=== PATIENT | female | born 1960 | race Caucasian/White ===

== ENCOUNTER → 2016-11-12 | Outpatient (CLI) | payer BC ==
--- NOTE | 2016-11-13 10:57 | MM ---
Reason for exam: screening (asymptomatic). Last mammogram was performed 1 year and 5 months ago. History: Patient is postmenopausal. Family history of breast cancer in mother at age 70, breast cancer in maternal aunt, and breast cancer in maternal grandmother. Took hormonal contraceptives for 7 years 2 months beginning at age 40. Physical Findings: A clinical breast exam by your physician is recommended on an annual basis and results should be correlated with mammographic findings. MG 3D Screening Mammo W/Cad Bilateral CC and MLO view(s) were taken. Prior study comparison: June 14, 2015, right breast MG 3d work up w/cad RT. May 31, 2015, bilateral MG 3d screening mammo w/cad. February 21, 2014, bilateral MG screening mammo w CAD. There are scattered fibroglandular densities. There is no discrete abnormality. ASSESSMENT: Negative, BI-RAD 1 RECOMMENDATION: Routine screening mammogram of both breasts in 1 year.
== END | disposition home or self-care (01) ==
LOC: RADMAMWWP 16:24
PROVIDERS: ATTEND Family Medicine
DX: Z12.31 Encounter for screening mammogram for malignant neoplasm of breast (principal)
CPT/HCPCS: 77063; G0202

== ENCOUNTER 2017-07-28 17:24 | Emergency (ER) | payer BC ==
[2017-07-28 17:35] VITALS: RESP 18
[2017-07-28] MEDS ORDERED: ASPIRIN 81 MG PO STA (17:45)
[2017-07-28] MEDS ORDERED: NITROGLYCERIN OINT 1 INCH/GM PACKET TOPICAL STA (17:45)
--- NOTE | 2017-07-28 18:02 | ED ---
Chest Pain HPI - General Chief Complaint: Chest Pain Stated Complaint: CHEST PAIN, RADIATING, TINGLING HANDS AND FEET Time Seen by Provider: 07/28/17 17:41 Source: patient Mode of arrival: wheelchair Limitations: no limitations - History of Present Illness Initial Comments: This 56-year-old white female presents with a complaint of some chest pain. She states that this is in the midsternal region and seems to radiate posteriorly. It is described as a pressure type of sensation. It occurred earlier today after she was shoveling snow. She denies any shortness of breath. She states that she had some slight paresthesias to her hands and feet. She denies any previously known cardiac disease. She has never had a stress test or heart catheterization. She denies any leg pain or swelling or history of DVT or PE. She is feeling improved currently. - Related Data Home Medications Medication Instructions Recorded Confirmed Albuterol Inhaler [Ventolin Hfa 1 - 2 puff INHALATION RT-Q6H PRN 07/28/17 Inhaler] Albuterol Nebulized [Ventolin 2.5 mg INHALATION RT-Q6H PRN 07/28/17 07/28/17 Nebulized] Ascorbic Acid [Vitamin C] 500 mg PO DAILY 07/28/17 07/28/17 Inulin/Chromium Picolinate [Fiber 1 tab PO DAILY 07/28/17 07/28/17 Gummies Chew] Levothyroxine Sodium [Synthroid] 25 mcg PO DAILY 07/28/17 07/28/17 Multivitamins, Thera [Multivitamin 1 tab PO DAILY 07/28/17 07/28/17 (formulary)] Ranitidine HCl [Zantac] 150 mg PO HS 07/28/17 07/28/17 Allergies Allergy/AdvReac Type Severity Reaction Status Date / Time cephalexin [From Keflex] Allergy Unknown Verified 07/28/17 18:54 loperamide [From Imodium A-D] Allergy Unknown Verified 07/28/17 18:54 midazolam [From Versed] Allergy Unknown Verified 07/28/17 18:54 Penicillins Allergy Unknown Verified 07/28/17 18:54 terbinafine [From Lamisil] Allergy Unknown Verified 07/28/17 18:54 Review of Systems ROS Statement: Those systems with pertinent positive or pertinent negative responses have been documented in the HPI. ROS Other: All systems not noted in ROS Statement are negative. Past Medical History Past Medical History: GERD/Reflux, Thyroid Disorder History of Any Multi-Drug Resistant Organisms: None Reported Past Surgical History: Section, Tonsillectomy Past Psychological History: Depression Smoking Status: Never smoker Past Alcohol Use History: None Reported Past Drug Use History: None Reported General Exam - General Exam Comments Initial Comments: GENERAL: The patient is well nourished and well hydrated. VITAL SIGNS: Heart rate, blood pressure, respiratory rate reviewed as recorded in nurse's notes. EYES: Pupils are round and reactive. Extraocular movements are intact. No conjunctival / lid redness or swelling. ENT: No external evidence of injury, swelling, or ecchymosis. Airway is patent. Throat is clear. NECK: Nontender. No swelling or evidence of injury. No subcutaneous emphysema. Trachea is midline. No thyroid mass. HEART: Regular rate and rhythm. Good peripheral pulses. LUNGS/CHEST: Breath sounds clear and equal bilaterally. No rales, rhonchi, or wheezes. No ecchymosis, subcutaneous emphysema, or tenderness. ABDOMEN: Abdomen soft without tenderness. No palpable masses or organomegaly. No peritoneal signs. No abdominal wall swelling or ecchymosis. EXTREMITIES: No extremity tenderness. Normal muscle tone and function. No thoracolumbar tenderness. NEUROLOGIC: Sensation is grossly intact. Cranial nerve exam reveals face is symmetrical, tongue is midline, speech is clear. SKIN: No abrasions or ecchymosis is noted. No induration or masses noted. PSYCHIATRIC: Alert and oriented. Appropriate behavior and judgment. Limitations: no limitations Course Vital Signs 07/28/17 07/28/17 17:31 19:17 Temperature 97.2 F L 97.6 F Pulse Rate 68 67 Respiratory 18 18 Rate Blood Pressure 132/63 135/89 O2 Sat by Pulse 100 98 Oximetry Chest Pain MDM - MDM The patient was seen and examined. All diagnostics were reviewed. The EKG shows a normal sinus rhythm at a rate of 65. There is no acute ST-T wave changes identified. The OK interval is 176, QRS duration is 80, and the QTc interval is 438. An IV is established and she does receive some aspirin as well as Nitropaste. The chest x-ray does not show any acute processes. The laboratory is all essentially within normal limits. The patient is in no distress upon initial evaluation and recheck. It is felt as though she benefit from admission to the hospital to rule out the possibility of acute coronary syndrome. She refuses to be admitted. She states that she feels much improved. Risks and benefits were discussed in detail. She still refuses admission. She is quite lucid and decision making capability is intact. She leaves AGAINST MEDICAL ADVICE. She was instructed to take an aspirin daily and to follow-up with her doctor tomorrow to set up a stress test on an outpatient basis and return at any time if she changes her mind regarding admission. Disposition Clinical Impression: Chest pain, Unstable angina pectoris Disposition: Left Against Medical Advice Condition: Good Instructions: Chest Pain (ED), Against Medical Advice (ED) Additional Instructions: Please take an aspirin daily. Please arrange a stress test with your primary care physician as soon as possible. Please return if her symptoms do worsen or recur. Referrals: Micheal Yañez III, MD [Primary Care Provider] - 1-2 days Time of Disposition: 19:41
[2017-07-28 18:22] LABS: Basophils # (A) 0.1 k/uL (0-0.2); Basophils % (A) 1 %; Eosinophils # (A) 0.2 k/uL (0-0.7); Eosinophils % (A) 2 %; HCT 41.5 % (34.0-46.0); HGB 13.7 gm/dL (11.4-16.0); Lymphocytes # (A) 2.5 k/uL (1.0-4.8); Lymphocytes % (A) 30 %; MCH 28.6 pg (25.0-35.0); MCV 86.7 fL (80.0-100.0); Mean Platelet Volume 7.1; Monocytes # (A) 0.3 k/uL (0-1.0); Monocytes % (A) 4 %; Neutrophils # (A) 5.1 k/uL (1.3-7.7); Neutrophils % (A) 61 %; Platelet Count 257 k/uL (150-450); RBC 4.79 m/uL (3.80-5.40); RDW 13.9 % (11.5-15.5); WBC 8.4 k/uL (3.8-10.6)
[2017-07-28 18:30] LABS: ALT 35 U/L (9-52); AST 30 U/L (14-36); Albumin 4.5 g/dL (3.5-5.0); Alkaline Phosphatase 54 U/L (38-126); Anion Gap 12 mmol/L; Blood Urea Nitrogen 23 mg/dL (7-17); Calcium 10.4 mg/dL (8.4-10.2); Carbon Dioxide 29 mmol/L (22-30); Chloride 102 mmol/L (98-107); Glucose 90 mg/dL (74-99); Magnesium 2.3 mg/dL (1.6-2.3); Potassium 4.3 mmol/L (3.5-5.1); Sodium 143 mmol/L (137-145); Total Bilirubin 0.4 mg/dL (0.2-1.3); Total Protein 7.3 g/dL (6.3-8.2)
--- NOTE | 2017-07-28 18:48 | XR ---
EXAMINATION TYPE: XR chest 2V DATE OF EXAM: 07/28/2017 COMPARISON: NONE HISTORY: Chest pain TECHNIQUE: Frontal and lateral views of the chest are obtained. FINDINGS: Heart and mediastinum are normal. Lungs are clear. Diaphragm is normal. There are chest le ads. Bony thorax appears intact. IMPRESSION: Normal chest
[2017-07-28 18:49] LABS: Creatine Kinase 120 U/L (30-135)
[2017-07-28 19:02] LABS: Creatine Kinase MB 0.9 ng/mL (0.0-2.4); Troponin I <0.012 ng/mL (0.000-0.034)
[2017-07-28 19:16] LABS: INR 1.2 (<1.2); Partial Thromboplastin Time 24.5 sec (22.0-30.0); Prothrombin Time 11.8 sec (9.0-12.0)
[2017-07-28 19:18] VITALS: BP 135/89; PULSE 67; TEMP 97.6
== END 2017-07-28 20:07 | disposition left against medical advice (07) ==
LOC: EC 17:24
DX: I20.0 Unstable angina (principal); E07.9 Disorder of thyroid, unspecified; K21.9 Gastro-esophageal reflux disease without esophagitis; Z53.29 Procedure and treatment not carried out because of patient's decision for other reasons; Z88.0 Allergy status to penicillin; Z88.1 Allergy status to other antibiotic agents; Z88.8 Allergy status to other drugs, medicaments and biological substances; Z79.899 Other long term (current) drug therapy
CPT/HCPCS: 36415; 71046; 80053; 82550; 82553; 83735; 83880; 84484; 85025; 85610; 85730; 93005; 99285

== ENCOUNTER → 2017-08-05 | Outpatient (CLI) | payer BC ==
--- NOTE | 2017-08-06 11:46 | EST ---
EXERCISE STRESS AGE: 56 SEX: F HT: 5'10" WT: 260 PROTOCOL: Will Stress Test STAGE: III DURATION OF EXERCISE: 9:12 HEART RATE REST: 76 BLOOD PRESSURE REST: 119/74 MAXIMUM HEART RATE ACHIEVED: 162 MAXIMUM BLOOD PRESSURE: 192/76 85% MPHR: 140 100% MPHR: 165 METS: 10.7 INDICATIONS: Chest pain. CLINICAL INFORMATION: Patient was exercised for a total period of 9 minutes, the peak heart rate of 162 was achieved. Maximum blood pressure of 192/76 mmHg was noted. Resting EKG shows normal sinus rhythm with normal NE interval and QRS duration and normal ST-T waves. During exercise J-point depression with upsloping ST segments are noted. Patient did not complain of any chest pain during the test. FINAL IMPRESSION: 1. This stress test is not suggestive of ischemia. 2. Patient's exercise tolerance is normal. 3. Patient did not complain of any anginal pain during the test. MMODL / IJN: [id number] /
== END | disposition home or self-care (01) ==
LOC: RADNMMAIN 10:46
PROVIDERS: ATTEND Nurse Practitioner Family
DX: R07.9 Chest pain, unspecified (principal)
CPT/HCPCS: 93017

== ENCOUNTER → 2018-01-23 | Outpatient (CLI) | payer BC ==
--- NOTE | 2018-01-24 10:50 | MM ---
Reason for exam: clinical finding. Last mammogram was performed 1 year and 2 months ago. History: Patient is postmenopausal. Family history of breast cancer in mother at age 70, breast cancer in maternal aunt at age 60, and breast cancer in maternal grandmother at age 80. Took hormonal contraceptives for 7 years 2 months beginning at age 40. Physical Findings: Nurse did not find any significant physical abnormalities on exam. MG 3D Diag Mammo W/Cad BAR[facility] Bilateral CC and MLO view(s) were taken. Prior study comparison: November 12, 2016, bilateral MG 3d screening mammo w/cad. June 14, 2015, right breast MG 3d work up w/cad RT. May 31, 2015, bilateral MG 3d screening mammo w/cad. The breast tissue is heterogeneously dense. This may lower the sensitivity of mammography. No suspicious abnormality. No significant new finding since priors. These results were verbally communicated with the patient and result sheet given to the patient on 01/23/18. ASSESSMENT: Negative, BI-RAD 1 RECOMMENDATION: Routine screening mammogram of both breasts in 1 year.
== END | disposition home or self-care (01) ==
LOC: RADMAMWWP 10:24
PROVIDERS: ATTEND Family Medicine
DX: N64.4 Mastodynia (principal); N63.0 Unspecified lump in unspecified breast
CPT/HCPCS: 77062; 77066

== ENCOUNTER → 2019-03-23 | Outpatient (CLI) | payer BC ==
--- NOTE | 2019-03-26 08:13 | MM ---
Reason for exam: screening (asymptomatic). Last mammogram was performed 1 year and 2 months ago. History: Patient is postmenopausal. Family history of breast cancer in mother at age 70, breast cancer in maternal aunt at age 60, and breast cancer in maternal grandmother at age 80. Took hormonal contraceptives for 7 years 2 months beginning at age 40. Physical Findings: A clinical breast exam by your physician is recommended on an annual basis and results should be correlated with mammographic findings. MG 3D Screening Mammo W/Cad Bilateral CC and MLO view(s) were taken. Prior study comparison: January 23, 2018, bilateral MG 3d diag mammo w/cad [facility]. November 12, 2016, bilateral MG 3d screening mammo w/cad. There are scattered fibroglandular densities. No significant changes when compared with prior studies. ASSESSMENT: Benign, BI-RAD 2 RECOMMENDATION: Routine screening mammogram of both breasts in 1 year.
== END | disposition home or self-care (01) ==
LOC: RADMAMWWP 13:23
PROVIDERS: ATTEND Family Medicine
DX: Z12.31 Encounter for screening mammogram for malignant neoplasm of breast (principal); Z78.0 Asymptomatic menopausal state; Z80.3 Family history of malignant neoplasm of breast
CPT/HCPCS: 77063; 77067

== ENCOUNTER → 2020-03-29 | Outpatient (CLI) | payer BC ==
--- NOTE | 2020-03-31 12:04 | MM ---
Reason for exam: screening (asymptomatic). Last mammogram was performed 1 year ago. History: Patient is postmenopausal. Family history of breast cancer in mother at age 70, breast cancer in maternal aunt at age 60, and breast cancer in maternal grandmother at age 80. Took hormonal contraceptives for 7 years 2 months beginning at age 40. Physical Findings: A clinical breast exam by your physician is recommended on an annual basis and results should be correlated with mammographic findings. MG 3D Screening Mammo W/Cad Bilateral CC and MLO view(s) were taken. Prior study comparison: March 23, 2019, bilateral MG 3d screening mammo w/cad. January 23, 2018, bilateral MG 3d diag mammo w/cad [facility]. There are scattered fibroglandular densities. No significant changes when compared with prior studies. ASSESSMENT: Negative, BI-RAD 1 RECOMMENDATION: Routine screening mammogram of both breasts in 1 year.
== END | disposition home or self-care (01) ==
LOC: RADMAMWWP 13:23
PROVIDERS: ATTEND Family Medicine
DX: Z12.31 Encounter for screening mammogram for malignant neoplasm of breast (principal)
CPT/HCPCS: 77063; 77067

== ENCOUNTER → 2020-11-17 | Outpatient (CLI) | payer BC ==
--- NOTE | 2020-11-17 12:22 | XR ---
EXAMINATION TYPE: XR foot complete LT DATE OF EXAM: 11/17/2020 CLINICAL HISTORY: Injury yesterday with pain. TECHNIQUE: Frontal, lateral, and oblique images of the left foot are obtained. COMPARISON: None FINDINGS: There is no acute fracture/dislocation evident in the left foot. The joint spaces in the left foot appear within normal limits. Mild diffuse subcutaneous edema. IMPRESSION: There is no acute fracture or dislocation in the left foot.
== END | disposition home or self-care (01) ==
LOC: RADXRMAIN 11:50
PROVIDERS: ATTEND Family Medicine
DX: S99.922A Unspecified injury of left foot, initial encounter (principal)

== ENCOUNTER → 2021-05-17 | Outpatient (CLI) | payer BC ==
--- NOTE | 2021-05-18 12:00 | MM ---
Reason for exam: screening (asymptomatic). Last mammogram was performed 1 year and 2 months ago. History: Patient is postmenopausal. Family history of breast cancer in mother at age 70, breast cancer in maternal aunt at age 60, and breast cancer in maternal grandmother at age 80. Took hormonal contraceptives for 7 years 2 months beginning at age 40. Physical Findings: A clinical breast exam by your physician is recommended on an annual basis and results should be correlated with mammographic findings. MG 3D Screening Mammo W/Cad Bilateral CC and MLO view(s) were taken. Prior study comparison: March 29, 2020, bilateral MG 3d screening mammo w/cad. March 23, 2019, bilateral MG 3d screening mammo w/cad. The breast tissue is heterogeneously dense. This may lower the sensitivity of mammography. There are benign appearing round calcifications bilaterally. There is no discrete abnormality. ASSESSMENT: Benign, BI-RAD 2 RECOMMENDATION: Routine screening mammogram of both breasts in 1 year.
== END | disposition home or self-care (01) ==
LOC: RADMAMWWP 07:28
PROVIDERS: ATTEND Family Medicine
DX: Z12.31 Encounter for screening mammogram for malignant neoplasm of breast (principal); Z78.0 Asymptomatic menopausal state; Z80.3 Family history of malignant neoplasm of breast
CPT/HCPCS: 77063; 77067

== ENCOUNTER → 2022-06-14 | Outpatient (CLI) | payer BC ==
--- NOTE | 2022-06-17 10:35 | MM ---
Reason for Exam: Screening (asymptomatic). Last screening mammogram was performed 12 month(s) ago. Patient History: Menarche at age 15. First Full-Term at age 28. Postmenopausal. Patient has history of breast feeding. Hormonal Contraceptives for 7 years, 2 months, from age 40 until age 49. Maternal grandmother had breast cancer, age 80. Maternal aunt had breast cancer, age 60. Mother had breast cancer, age 70. Risk Values: Mikaela 5 year model risk: 2.6%. NCI Lifetime model risk: 12.8%. Prior Study Comparison: 03/23/2019 Bilateral Screening Mammogram, [facility]. 03/29/2020 Bilateral Screening Mammogram, [facility]. 05/17/2021 Bilateral Screening Mammogram, [facility]. Tissue Density: There are scattered fibroglandular densities. Findings: Analyzed By CAD. There is oval 1.1 cm focal asymmetry in the right breast middle depth medial aspect CC slice 13 of uncertain etiology as corresponding abnormality not clearly seen on MLO view. There is no suspicious group of microcalcifications or new suspicious mass in either breast. Overall Assessment: Incomplete: need additional imaging evaluation, BI-RAD 0 Management: Special View Mammogram of the right breast. Return for additional diagnostic imaging right breast. Electronically signed and approved by: Jj Meredith M.D.
== END | disposition home or self-care (01) ==
LOC: RADMAMWWP 07:25
PROVIDERS: ATTEND Family Medicine
DX: Z12.31 Encounter for screening mammogram for malignant neoplasm of breast (principal); Z78.0 Asymptomatic menopausal state; Z80.3 Family history of malignant neoplasm of breast
CPT/HCPCS: 77063; 77067

== ENCOUNTER → 2022-06-19 | Outpatient (CLI) | payer BC ==
--- NOTE | 2022-06-19 09:11 | MM ---
Reason for Exam: Additional evaluation requested from abnormal screening. Last screening mammogram was performed less than 1 month ago. Patient History: Menarche at age 15. First Full-Term at age 28. Postmenopausal. Patient has history of breast feeding. Hormonal Contraceptives for 7 years, 2 months, from age 40 until age 49. Maternal grandmother had breast cancer, age 80. Maternal aunt had breast cancer, age 60. Mother had breast cancer, age 70. Risk Values: Mikaela 5 year model risk: 2.6%. NCI Lifetime model risk: 12.8%. Prior Study Comparison: 11/12/2016 Bilateral Screening Mammogram, [facility]. 01/23/2018 Bilateral Diagnostic Mammogram, [facility]. 03/23/2019 Bilateral Screening Mammogram, [facility]. 03/29/2020 Bilateral Screening Mammogram, [facility]. 05/17/2021 Bilateral Screening Mammogram, [facility]. 06/14/2022 Bilateral MG 3D screening mammo w/cad, [facility]. Tissue Density: Right: The breast tissue is heterogeneously dense. This may lower the sensitivity of mammography. Findings: Analyzed By CAD. Impression no persistent suspicious density is evident. No spiculated or lobular masses are evident. No architectural distortion. Short-term follow-up is recommended. Overall Assessment: Probably benign, BI-RAD 3 Management: Diagnostic Mammogram of the right breast in 6 months. A clinical breast exam by your physician is recommended on an annual basis and results should be correlated with mammographic findings. This exam should not preclude additional follow-up of suspicious palpable abnormalities. Results were given to the patient verbally at the time of exam. Electronically signed and approved by: Francis Saenz D.O. Radiologis
== END | disposition home or self-care (01) ==
LOC: RADMAMWWP 07:31
PROVIDERS: ATTEND Family Medicine
DX: R92.8 Other abnormal and inconclusive findings on diagnostic imaging of breast (principal); Z78.0 Asymptomatic menopausal state; Z80.3 Family history of malignant neoplasm of breast
CPT/HCPCS: 77061; 77065

== ENCOUNTER → 2023-08-15 | Outpatient (CLI) | payer BC ==
--- NOTE | 2023-08-15 15:15 | MM ---
Reason for Exam: Screening (asymptomatic). Last mammogram was performed 1 year(s) and 3 month(s) ago. Patient History: Menarche at age 15. First Full-Term at age 28. Postmenopausal. Patient has history of breast feeding. Hormonal Contraceptives for 7 years, 2 months, from age 40 until age 49. Maternal grandmother had breast cancer, age 80. Maternal aunt had breast cancer, age 60. Mother had breast cancer, age 70. Risk Values: Mikaela 5 year model risk: 2.7%. NCI Lifetime model risk: 12.1%. Prior Study Comparison: 05/17/2021 Bilateral Screening Mammogram, [facility]. 06/14/2022 Bilateral MG 3D screening mammo w/cad, [facility]. 06/19/2022 Right MG 3D work up w/cad RT, [facility]. Tissue Density: There are scattered fibroglandular densities. Findings: Analyzed By CAD. The pattern is symmetrical. No significant interval change is evident. No suspicious groups of microcalcifications, spiculated or lobular masses, architectural distortion or other secondary signs of malignancy are mammographically apparent. Overall Assessment: Benign, BI-RAD 2 Management: Screening Mammogram of both breasts in 1 year. A negative mammogram report should not preclude additional follow up of suspicious palpable abnormalities. Patient should continue monthly self breast exam. A clinical breast exam by your physician is recommended on an annual basis and results should be correlated with mammographic findings. Electronically signed and approved by: Francis Saenz D.O. Radiologis
== END | disposition home or self-care (01) ==
LOC: RADMAMWWP 09:46
PROVIDERS: ATTEND Family Medicine
DX: Z12.31 Encounter for screening mammogram for malignant neoplasm of breast (principal); Z78.0 Asymptomatic menopausal state; Z80.3 Family history of malignant neoplasm of breast
CPT/HCPCS: 77063; 77067

== ENCOUNTER → 2024-04-07 | Outpatient (CLI) | payer BC ==
--- NOTE | 2024-04-07 16:54 | US ---
EXAMINATION TYPE: US thyroid st tissue head/neck DATE OF EXAM: 04/07/2024 COMPARISON: None available CLINICAL INDICATION: Female, 63 years old with history of E04.2 nontoxic multinodular goiter; Pt stat es she had a CT at an outside facility and it showed a thyroid nodule TECHNIQUE: Grayscale and color Doppler imaging of the thyroid gland. FINDINGS: GLAND SIZE: Right Lobe: 4.2 x 4.5 x 4.6 cm Overall Parenchyma: homogeneous Left Lobe: 4.7 x 1.4 x 1.6 cm Overall Parenchyma: homogeneous Isthmus Thickness: 0.27 cm NODULES RIGHT: # of nodules measured on right: 0 LEFT: # of nodules measured on left: 1 1. 1.4 X 0.8 x 0.7 cm, lower mid, solid or almost completely solid, isoechoic nodule, which is wide r than tall, with ill-defined margins, without echogenic foci. TR 3. ISTHMUS: # of nodules measured in the isthmus: 0 Bilateral neck scanned, no evidence of lymphadenopathy. IMPRESSION: Left thyroid lobe 1.4 cm TR 3 nodule. ACR TI-RADS LEVEL: TR-RADS 3: Follow if > 1.5 cm, FNA if > 2.5 cm *Highest TI-RADS level nodule reported [facility], , 04/07/2024 4:52 PM
== END | disposition home or self-care (01) ==
LOC: RADUSWWP 15:15
PROVIDERS: ATTEND Internal Medicine Endocrinology, Diabetes & Metabolism
DX: E04.2 Nontoxic multinodular goiter (principal)
CPT/HCPCS: 76536

== ENCOUNTER 2024-05-21 08:05 | Day surgery (SDC) | payer BC ==
[2024-05-21 10:45] VITALS: BP 121/84; PULSE 62; RESP 18; TEMP 97.7
--- NOTE | 2024-05-21 11:54 | US ---
EXAMINATION TYPE: US FNA thyroid first lesion DATE OF EXAM: 05/21/2024 10:28 AM COMPARISON: 04/07/2024 CLINICAL INDICATION:Female, 63 years old with history of E04.1 NONTOXIC SINGLE THYROID NODULE; , ATTENDING: Dr. Brennan Gustafson PROCEDURE: Informed consent was obtained. The risks and benefits of the procedure were discussed with the patien t. The site was marked. Timeout procedure was performed Ultrasound imaging demonstrates left thyroid nodule The patient was prepped, draped in the usual sterile fashion, and locally anesthetized with 1% lidoca ine. Five fine needle aspiration were then performed with a 25 gauge needle. [facility] analysis. Patient tolerated the procedure without incident and wa s sent home in stable condition. IMPRESSION: Technically challenging biopsy secondary to the conspicuous nature of the left thyroid nodule. Attent ion pathology. [facility], , 05/21/2024 11:52 AM
== END 2024-05-21 10:20 | disposition home or self-care (01) ==
LOC: RADPROMAIN 08:05
PROVIDERS: ATTEND Internal Medicine Endocrinology, Diabetes & Metabolism
DX: E04.1 Nontoxic single thyroid nodule (principal)
CPT/HCPCS: 10005; 88173; 88305